=== PATIENT | male | born 1950 | race Caucasian/White ===

== ENCOUNTER 2018-03-12 19:19 | Emergency (ER) | payer MEDICARE ==
[~2018-03-12] VITALS: Ht 153 cm; Wt 83.5 kg
[2018-03-12] MEDS ORDERED: HYDROCODONE/APAP 10MG-325MG TAB PO ONE (19:45)
--- NOTE | 2018-03-12 20:41 | Diagnostic Imaging Report ---
ANKLE 3+ VIEWS LEFT - 3 views HISTORY: Pain COMPARISON: None available. FINDINGS: See impression. IMPRESSION: Impacted comminuted mildly displaced fracture of the talus with associated soft tissue swelling. There is extension of fracture line to the talocalcaneal joint space. Mild widening of the talonavicular joint space. Ankle mortise appears intact. Moderate size avulsed fracture fragment projects over the lateral malleolar soft tissues. Signed by: Dr. Sergio Parker MD on 03/12/2018 8:37 PM
--- NOTE | 2018-03-12 20:43 | Diagnostic Imaging Report ---
FOOT LEFT COMPLETE - 3 views HISTORY: Pain COMPARISON: None available. FINDINGS: Bones: No acute displaced fracture. Osseous alignment is within normal limits. Joints: The joint spaces are well-maintained. Soft tissues: The soft tissues appear unremarkable. IMPRESSION: No evidence of acute fracture or dislocation of the left foot. Comminuted talar fracture as noted on ankle x-ray report. Signed by: Dr. Sergio Parker MD on 03/12/2018 8:39 PM
[2018-03-12] MEDS ORDERED: ONDANSETRON HCL 4 MG ORAL DISINTEGRATING TAB PO ONE (20:45)
[2018-03-12 21:25] VITALS: BP 148/106
[2018-03-12] MEDS ORDERED: FENTANYL 50 MCG/HR PATCH TOP ONE (22:00)
== END 2018-03-12 23:09 | disposition home or self-care (01) ==
LOC: ER 19:19
DX: S92.192A Other fracture of left talus, initial encounter for closed fracture (principal); W11.XXXA Fall on and from ladder, initial encounter; Y92.008 Other place in unspecified non-institutional (private) residence as the place of occurrence of the external cause; E78.5 Hyperlipidemia, unspecified; F41.9 Anxiety disorder, unspecified; G47.00 Insomnia, unspecified
CPT/HCPCS: 99284